=== PATIENT | male | born 1960 ===

== ENCOUNTER 2019-07-31 14:04 | Inpatient (IN) ==
[2019-07-31] MEDS ORDERED: GLUCAGON 1 MG VIAL IM PRN (17:24)
[2019-07-31] MEDS ORDERED: DEXTROSE 50% 25 GM/50 ML VIAL IV PRN (17:24)
[2019-08-01 06:11] LABS: Basophils % 0.9 % (0.0-0.8); Eosinophils # 0.1 10*3/uL (0.0-0.87); Eosinophils % 3.1 % (0.00-10.9); Hematocrit 31.3 VOL% (42.0-52.0); Hemoglobin 10.3 GM/DL (14.0-18.0); Immature Granulocytes % 0.3 %; Immature Granulocytes Absolute 0.01 #; Lymphocytes # 0.6 10*3/uL (1.4-4.0); Lymphocytes % 16.6 % (21.2-54.2); Mean Corpuscular HGB Conc 32.9 GM/DL (32-36); Mean Corpuscular Volume 91.8 FL (87-102); Monocytes % 8.6 % (1.7-12.7); Neutrophils % 70.5 % (38.7-73.9); Platelet Count 86 T/CUMM (130-400); Red Blood Count 3.41 MC/CUMM (3.8-5.5); Red Cell Distribution Width 16.5 % (9.3-17.3); White Blood Count 3.5 T/CUMM (4-12)
[2019-08-01 06:29] LABS: Calcium 8.3 MG/DL (8.5-10.1); Osmolality,Calculated 277.8 MOS/KG (273-304)
[2019-08-01 07:23] LABS: Hepatitis B Core IgM Quant 0.14 Index; Hepatitis B Surface Ag Quant < 0.10 Index; Hepatitis B Surface Ag Result Negative (Negative); Hepatitis C Virus Ab Quant < 0.02 Index; Hepatitis C Virus Ab Result Negative (Negative)
[2019-08-01 07:38] LABS: Band Neutrophils 2 % (0-10); Eosinophils 3 % (0-10); Lymphocytes 15 % (20-55); Platelet Estimate Decreased; Segmented Neutrophils 67 % (50-85)
[2019-08-01 07:39] LABS: Hypochromasia 2+; Total Cells Counted 100
[2019-08-01 09:05] LABS: INR 1.2; PT Patient Result 12.7 SECS (9.6-12.2)
[2019-08-01 09:23] LABS: Albumin 2.5 G/DL (3.4-5.0); Bilirubin,Direct 7.11 MG/DL (0.0-0.20); Bilirubin,Total 9.1 MG/DL (0.2-1.0)
[2019-08-01 09:31] LABS: Cancer Antigen 19-9 37.6 U/ML (0-37); Carcinoembryonic Antigen 1.5 NG/ML (0.0-5.0)
[2019-08-01] MEDS: ACETAMINOPHEN 325 MG TABLET PO PRN (15:58)
[2019-08-01] MEDS: PANTOPRAZOLE 40 MG TABLET PO SCH (15:59)
[2019-08-02] MEDS: PANTOPRAZOLE 40 MG TABLET PO SCH (08:54)
[2019-08-03 05:32] LABS: Basophils % 0.7 % (0.0-0.8); Eosinophils # 0.1 10*3/uL (0.0-0.87); Eosinophils % 3.4 % (0.00-10.9); Hematocrit 28.9 VOL% (42.0-52.0); Hemoglobin 9.6 GM/DL (14.0-18.0); Immature Granulocytes % 0.3 %; Immature Granulocytes Absolute 0.01 #; Lymphocytes # 0.5 10*3/uL (1.4-4.0); Lymphocytes % 16.2 % (21.2-54.2); Mean Corpuscular HGB Conc 33.2 GM/DL (32-36); Mean Corpuscular Volume 91.7 FL (87-102); Mean Platelet Volume 11.8 FL (9.6-12.0); Monocytes % 9.1 % (1.7-12.7); Neutrophils % 70.3 % (38.7-73.9); Red Blood Count 3.15 MC/CUMM (3.8-5.5); Red Cell Distribution Width 16.7 % (9.3-17.3)
[2019-08-03 05:35] LABS: Platelet Count 88 T/CUMM (130-400)
[2019-08-03 05:49] LABS: INR 1.2; PT Patient Result 12.9 SECS (9.6-12.2)
[2019-08-03 05:52] LABS: Albumin 2.1 G/DL (3.4-5.0); Bilirubin,Total 9.3 MG/DL (0.2-1.0); Calcium 8.1 MG/DL (8.5-10.1); Total Protein 6.1 G/DL (6.4-8.3)
[2019-08-03 06:49] LABS: Hypochromasia 1+; Ovalocytes Slight; Platelet Estimate Decreased
[2019-08-03] MEDS ORDERED: POTASSIUM CHLORIDE RIDER 10 MEQ in PREMIX 1 EACH IV PRN (09:16)
[2019-08-03] MEDS: PANTOPRAZOLE 40 MG TABLET PO SCH (09:34)
[2019-08-03] MEDS: POTASSIUM CHLORIDE 20 MEQ TABLET PO PRN ×3 (09:52→14:01)
[2019-08-03] MEDS: INSULIN REGULAR 100 UNIT/ML SUBCUT SCH ×3 (11:27→21:18)
[2019-08-04] MEDS: INSULIN REGULAR 100 UNIT/ML SUBCUT SCH ×4 (08:02→21:08)
[2019-08-04] MEDS ORDERED: DIAZEPAM 5 MG TABLET PO ONE (10:44)
[2019-08-04] MEDS: PANTOPRAZOLE 40 MG TABLET PO SCH (12:28)
[2019-08-04] MEDS ORDERED: GLUCAGON 1 MG VIAL IM PRN (14:21)
[2019-08-04] MEDS ORDERED: DEXTROSE 50% 25 GM/50 ML VIAL IV PRN (14:21)
[2019-08-04] MEDS: ACETAMINOPHEN 325 MG TABLET PO PRN (14:26)
[2019-08-04] MEDS: ONDANSETRON 4 MG/2 ML VIAL IV PRN ×2 (16:03→23:17)
[2019-08-04] MEDS ORDERED: SODIUM CHLORIDE 0.9% 500 ML IV ONE (16:26)
[2019-08-04] MEDS ORDERED: PHENYLEPHRINE DRIP 0 MG/0 ML PREMIX IV ONE (16:45)
[2019-08-04] MEDS: PHENYLEPHRINE DRIP 40 MG/250 ML PREMIX IV PRN ×2 (16:48→20:17)
[2019-08-04] MEDS: PANTOPRAZOLE 40 MG VIAL IV SCH ×2 (17:21→20:40)
[2019-08-04] MEDS ORDERED: ALBUMIN 25% 25 GM in PREMIX 1 EACH IV ONE (17:25)
[2019-08-04] MEDS: SODIUM CHLORIDE 0.9% 1,000 ML IV SCH (17:25)
[2019-08-04 17:28] LABS: Basophils # 0.1 10*3/uL (0.0-0.2); Basophils % 0.5 % (0.0-0.8); Eosinophils # 0.1 10*3/uL (0.0-0.87); Eosinophils % 0.6 % (0.00-10.9); Hematocrit 26.2 VOL% (42.0-52.0); Hemoglobin 8.2 GM/DL (14.0-18.0); Immature Granulocytes % 0.8 %; Immature Granulocytes Absolute 0.09 #; Lymphocytes # 1.2 10*3/uL (1.4-4.0); Lymphocytes % 11.1 % (21.2-54.2); Mean Corpuscular HGB Conc 31.3 GM/DL (32-36); Mean Platelet Volume 11.9 FL (9.6-12.0); Monocytes % 9.5 % (1.7-12.7); Neutrophils % 77.5 % (38.7-73.9); Platelet Count 166 T/CUMM (130-400); Red Cell Distribution Width 17.7 % (9.3-17.3); White Blood Count 10.7 T/CUMM (4-12)
[2019-08-04 17:37] LABS: INR 1.4; PT Patient Result 14.8 SECS (9.6-12.2); Partial Thromboplastin Time 29.5 SECS (20.8-36.0)
[2019-08-04 17:44] LABS: Calcium 7.8 MG/DL (8.5-10.1); Osmolality,Calculated 275.8 MOS/KG (273-304)
[2019-08-04] MEDS: MORPHINE 4 MG/1 ML VIAL IV PRN ×2 (18:58→23:08)
[2019-08-04] MEDS ORDERED: MORPHINE 4 MG/1 ML VIAL IV ONE (19:25)
[2019-08-04 19:53] LABS: Basophils % 0.1 % (0.0-0.8); Eosinophils % 0.1 % (0.00-10.9); Hematocrit 20.8 VOL% (42.0-52.0); Immature Granulocytes % 2.2 %; Immature Granulocytes Absolute 0.35 #; Lymphocytes # 0.9 10*3/uL (1.4-4.0); Lymphocytes % 5.9 % (21.2-54.2); Mean Corpuscular HGB Conc 30.8 GM/DL (32-36); Mean Platelet Volume 11.8 FL (9.6-12.0); NRBC # 0.02 10*3/uL; Neutrophils % 81.7 % (38.7-73.9); Platelet Count 181 T/CUMM (130-400); Red Blood Count 2.08 MC/CUMM (3.8-5.5); Red Cell Distribution Width 18.3 % (9.3-17.3)
[2019-08-04 19:57] LABS: Hemoglobin 6.4 GM/DL (14.0-18.0)
[2019-08-04] MEDS ORDERED: SODIUM CHLORIDE 0.9% 1,000 ML IV PRN (20:12)
[2019-08-04] MEDS: PHENYLEPHRINE INJ 160 MG in SODIUM CHLORIDE 0.9% 234 ML IV PRN (22:43)
[2019-08-05] MEDS ORDERED: HYDROmorphone 2 MG/1 ML VIAL IV ONE (02:41)
[2019-08-05 02:54] LABS: Hematocrit 25.6 VOL% (42.0-52.0)
[2019-08-05 03:01] LABS: Hemoglobin 7.5 GM/DL (14.0-18.0)
[2019-08-05] MEDS: SODIUM CHLORIDE 0.9% 1,000 ML IV SCH (03:04)
[2019-08-05] MEDS ORDERED: SODIUM CHLORIDE 0.9% 1,000 ML IV PRN (03:25)
[2019-08-05 04:54] LABS: Basophils # 0.1 10*3/uL (0.0-0.2); Basophils % 0.3 % (0.0-0.8); Eosinophils # 0.1 10*3/uL (0.0-0.87); Eosinophils % 0.2 % (0.00-10.9); Hematocrit 26.2 VOL% (42.0-52.0); Hemoglobin 7.5 GM/DL (14.0-18.0); Immature Granulocytes % 3.8 %; Immature Granulocytes Absolute 1.29 #; Lymphocytes # 3.1 10*3/uL (1.4-4.0); Lymphocytes % 9.1 % (21.2-54.2); Mean Corpuscular HGB Conc 28.6 GM/DL (32-36); Mean Corpuscular Volume 106.1 FL (87-102); Monocytes % 10.3 % (1.7-12.7); NRBC # 0.07 10*3/uL; Neutrophils % 76.3 % (38.7-73.9); Platelet Count 201 T/CUMM (130-400); Red Blood Count 2.47 MC/CUMM (3.8-5.5); White Blood Count 34.3 T/CUMM (4-12)
[2019-08-05 05:13] LABS: Band Neutrophils 2 % (0-10); Hypochromasia 1+; Lymphocytes 12 % (20-55); Ovalocytes Slight; Platelet Estimate Adequate; Segmented Neutrophils 73 % (50-85); Total Cells Counted 100
[2019-08-05 05:33] LABS: Calcium 8.3 MG/DL (8.5-10.1); Osmolality,Calculated 278.4 MOS/KG (273-304)
[2019-08-05 05:50] LABS: Albumin 2.4 G/DL (3.4-5.0); Bilirubin,Direct 14.15 MG/DL (0.0-0.20); Bilirubin,Indirect 3.5 MG/DL (0.0-1.0); Total Protein 5.2 G/DL (6.4-8.3)
[2019-08-05 05:53] LABS: Bilirubin,Total 17.6 MG/DL (0.2-1.0)
[2019-08-05 05:54] LABS: ABG Base Excess -27.7 MMOL/L (-2.5-2.5); ABG HCO3 4.9 MMOL/L (20-26); ABG Oxygen Saturation 95.6 % (95-100); ABG TCO2 3.6 MMOL/L (23-27); Allen Test Positive
[2019-08-05] MEDS ORDERED: DEXTROSE 10% 0 ML IV ONE (05:54)
[2019-08-05 05:59] LABS: ABG PCO2 18.1 MM HG (35-48); ABG PH 6.887 (7.35-7.45)
[2019-08-05] MEDS ORDERED: SODIUM BICARBONATE 50 MEQ/50 ML VIAL IV ONE ×8 (06:07→15:50)
[2019-08-05] MEDS ORDERED: ETOMIDATE 20 MG/10 ML VIAL IV ONE (06:14)
[2019-08-05] MEDS ORDERED: VECURONIUM 10 MG VIAL IV ONE (06:14)
[2019-08-05] MEDS ORDERED: SODIUM BICARB IV SCH ×2 (06:30→08:30)
[2019-08-05] MEDS ORDERED: SODIUM CHLORIDE 0.45% IV SCH (06:30)
[2019-08-05 06:55] LABS: ABG HCO3 7.3 MMOL/L (20-26); ABG Oxygen Saturation 96.5 % (95-100); ABG PCO2 21.4 MM HG (35-48); ABG TCO2 5.9 MMOL/L (23-27); Allen Test Positive
[2019-08-05 06:56] LABS: ABG PH 7.049 (7.35-7.45)
[2019-08-05] MEDS: INSULIN REGULAR 100 UNIT/ML SUBCUT SCH ×3 (07:34→16:26)
[2019-08-05] MEDS ORDERED: MIDAZOLAM 10 MG/2 ML VIAL ONE ×2 (07:57→08:16)
[2019-08-05] MEDS ORDERED: SUCCINYLCHOLINE 200 MG/10 ML VIAL ONE (07:59)
[2019-08-05] MEDS ORDERED: NOREPINEPHRINE 8 MG in SODIUM CHLORIDE 0.9% 242 ML IV PRN (08:03)
[2019-08-05] MEDS ORDERED: MIDAZOLAM 100 MG in SODIUM CHLORIDE 0.9% 80 ML IV PRN (08:12)
[2019-08-05] MEDS ORDERED: MIDAZOLAM 10 MG/2 ML VIAL IV ONE (08:30)
[2019-08-05] MEDS ORDERED: DEXTROSE 5% IV SCH (08:30)
[2019-08-05] MEDS ORDERED: PIPERACILLIN/TAZOBACTAM 3,375 MG in SODIUM CHLORIDE 0.9% 100 ML IV SCH (08:30)
[2019-08-05] MEDS ORDERED: HEPARIN/NACL 0.9% 2 UNITS/ML 500 ML IV SCH (09:00)
[2019-08-05 09:22] LABS: ABG Base Excess -24.3 MMOL/L (-2.5-2.5); ABG HCO3 6.7 MMOL/L (20-26); ABG Oxygen Saturation 99.7 % (95-100); ABG PCO2 27.8 MM HG (35-48); ABG TCO2 6.2 MMOL/L (23-27); Allen Test Positive; Pt O2 Delivery Device Ventilator
[2019-08-05 09:23] LABS: ABG PH 6.942 (7.35-7.45)
[2019-08-05] MEDS ORDERED: MAGNESIUM SULF RIDER 4 GM in PREMIX 1 EACH IV PRN (09:34)
[2019-08-05] MEDS ORDERED: MAGNESIUM SULF RIDER 2 GM in PREMIX 1 EACH IV PRN (09:34)
[2019-08-05] MEDS: PANTOPRAZOLE 40 MG VIAL IV SCH (09:36)
[2019-08-05] MEDS: SODIUM BICARB INJ 150 MEQ in DEXTROSE 5% 850 ML IV SCH ×2 (09:42→16:35)
[2019-08-05 10:19] LABS: ABG Base Excess -20.4 MMOL/L (-2.5-2.5); ABG Oxygen Saturation 99.9 % (95-100); ABG PCO2 26.2 MM HG (35-48); ABG TCO2 7.9 MMOL/L (23-27); Allen Test Positive; Pt O2 Delivery Device Ventilator
[2019-08-05 11:52] LABS: ABG Base Excess -21.8 MMOL/L (-2.5-2.5); ABG HCO3 8.2 MMOL/L (20-26); ABG Oxygen Saturation 99.4 % (95-100); ABG PCO2 24.4 MM HG (35-48); ABG TCO2 6.9 MMOL/L (23-27)
[2019-08-05 11:55] LABS: ABG PH 7.064 (7.35-7.45)
[2019-08-05] MEDS: MORPHINE 4 MG/1 ML VIAL IV PRN ×7 (12:27→23:50)
[2019-08-05] MEDS: LACTULOSE 20 GM/30 ML UDCUP PO SCH ×2 (12:58→15:59)
[2019-08-05 13:26] LABS: ABG Base Excess -19.2 MMOL/L (-2.5-2.5); ABG HCO3 9.9 MMOL/L (20-26); ABG Oxygen Saturation 99.4 % (95-100); ABG PCO2 26.8 MM HG (35-48); ABG TCO2 8.6 MMOL/L (23-27)
[2019-08-05 13:29] LABS: ABG PH 7.124 (7.35-7.45)
[2019-08-05] MEDS ORDERED: HYDROCORTISONE 100 MG VIAL IV SCH ×2 (13:30→20:00)
[2019-08-05 14:00] LABS: Calcium 8.1 MG/DL (8.5-10.1)
[2019-08-05] MEDS: PHENYLEPHRINE INJ 160 MG in SODIUM CHLORIDE 0.9% 234 ML IV PRN (14:20)
[2019-08-05] MEDS ORDERED: THIAMINE 200 MG/2 ML VIAL IV SCH (15:00)
[2019-08-05 15:30] LABS: ABG Base Excess -16.8 MMOL/L (-2.5-2.5); ABG HCO3 11.6 MMOL/L (20-26); ABG Oxygen Saturation 97.9 % (95-100); ABG PCO2 26.8 MM HG (35-48); ABG TCO2 9.8 MMOL/L (23-27)
[2019-08-05] MEDS ORDERED: FOLIC ACID INJ 1 MG in SYRINGE 1 EACH IV SCH (15:30)
[2019-08-05 17:31] LABS: ABG Base Excess -12.4 MMOL/L (-2.5-2.5); ABG HCO3 12.5 MMOL/L (20-26); ABG Oxygen Saturation 97.4 % (95-100); ABG PCO2 25.1 MM HG (35-48); ABG PH 7.314 (7.35-7.45); ABG PO2 106.8 MM HG (80-95); ABG TCO2 13.2 MMOL/L (23-27)
[2019-08-05 18:02] LABS: Hematocrit 26.6 VOL% (42.0-52.0); Hemoglobin 8.4 GM/DL (14.0-18.0)
[2019-08-05] MEDS ORDERED: MORPHINE 4 MG/1 ML VIAL IV PRN (18:39)
[2019-08-05] MEDS ORDERED: LORazepam 2 MG/1 ML VIAL ONE (21:02)
[2019-08-05] MEDS: LORazepam 2 MG/1 ML VIAL IV PRN (21:22)
[2019-08-06] MEDS ORDERED: LORazepam 2 MG/1 ML VIAL ONE (00:32)
[2019-08-06] MEDS: LORazepam 2 MG/1 ML VIAL IV PRN (00:50)
[2019-08-06] MEDS: MORPHINE 4 MG/1 ML VIAL IV PRN ×3 (02:19→09:40)
[2019-08-06 10:28] VITALS: BP 47/20
== END 2019-08-06 13:06 | disposition expired | DRG 435 ==
LOC: SUATTDRO 16:02 → N.4E 16:02 → N.ICU 08-04 16:45 → N.4E 08-06 09:57
PROVIDERS: ADMIT Internal Medicine; ATTEND Internal Medicine